=== PATIENT | female | born 1940 | race Hispanic/Latino ===

== ENCOUNTER 2016-12-26 14:30 | Emergency (ER) | payer BC ==
[2016-12-26 14:31] VITALS: BMI 23.8
[2016-12-26 14:37] VITALS: TEMP 98.3
[2016-12-26] MEDS ORDERED: Sodium Chloride 0.9% 500 ML IV STA (14:59)
[2016-12-26 15:40] LABS: ALB/GLOB RATIO 1.7 (1.1-1.8); ALKALINE PHOSPHATASE 61 U/L (38-126); ALT/SGPT 37 U/L (7-56); AST/SGOT 28 U/L (14-36); BILIRUBIN,TOTAL 0.7 mg/dL (0.2-1.3); BLOOD UREA NITROGEN 14 mg/dL (7-21); CALCIUM 9.4 mg/dL (8.4-10.5); CARBON DIOXIDE 26 mmol/L (21-33); GFR AFRICAN-AMERICAN > 60; GLUCOSE,RANDOM 95 mg/dL (70-110); POTASSIUM 4.1 mmol/L (3.6-5.0); SODIUM 138 mmol/L (132-148)
[2016-12-26 15:41] LABS: CHLORIDE 104 mmol/L (98-107)
--- NOTE | 2016-12-26 15:42 | ED PDOC ---
Arrival/HPI - General Historian: Patient - History of Present Illness Time/Duration: 1 week Symptom Course: Intermittent Quality: Stabbing Severity Level: 10 Activities at Onset: Rest <Marilou Bangura - Last Filed: 12/26/16 17:15> <Barbara Childress - Last Filed: 12/26/16 19:11> - General Chief Complaint: Back Pain Time Seen by Provider: 12/26/16 14:45 - History of Present Illness Narrative History of Present Illness (Text): 12/26/16 15:39 76yr old female presents today today with a 1 week history of intermitted left sided upper back pain. pt states for the past week she has been having intermittent sharp stabbing pain to the left upper back. pt denies any recent trauma or injury. pt states pain first started 1 week ago while she was sitting in a new chair at work. pt denies cp or sob. no abdominal pain. no urinary symptoms. denies numbness, weakness. pt states pain has been intermittent and last night the pain was 10/10. pt states pain is always located at the same point in the left side of the upper back and is non radiating. pt states she was sent to ER by her PMD for further evaluation. pt denies any pain at present time. (Marilou Bangura) Past Medical History - Provider Review Nursing Documentation Reviewed: Yes - Travel History Have you recently traveled outside [place] w/in the past 3 mons?: No - Infectious Disease Hx of Infectious Diseases: None - Tetanus Immunization Tetanus Immunization: Unknown - Past Medical History Past Medical History: No Previous - Psychiatric Hx Depression: No Hx Emotional Abuse: No Hx Physical Abuse: No Hx Substance Use: No - Past Surgical History Past Surgical History: No Previous - Anesthesia Hx Anesthesia: No - Suicidal Assessment Feels Threatened In Home Enviroment: No <Marilou Bangura - Last Filed: 12/26/16 17:15> Family/Social History - Physician Review Nursing Documentation Reviewed: Yes Family/Social History: Unknown Family HX Smoking Status: Former Smoker Hx Alcohol Use: No Hx Substance Use: No <Marilou Bangura - Last Filed: 12/26/16 17:15> Allergies/Home Meds <Marilou Bangura - Last Filed: 12/26/16 17:15> <Barbara Childress - Last Filed: 12/26/16 19:11> Allergies/Adverse Reactions: Allergies No Known Allergies Allergy (Verified 12/26/16 14:33) Review of Systems - Review of Systems Constitutional: absent: Fatigue, Fevers Respiratory: absent: SOB, Cough Cardiovascular: absent: Chest Pain, Palpitations Gastrointestinal: absent: Abdominal Pain, Constipation, Diarrhea, Nausea, Vomiting Genitourinary Female: absent: Dysuria, Frequency, Hematuria Musculoskeletal: Back Pain. absent: Arthralgias, Neck Pain Skin: absent: Rash, Pruritis Neurological: absent: Headache, Dizziness Psychiatric: absent: Anxiety, Depression, Suicidal Ideation <Marilou Bangura T - Last Filed: 12/26/16 17:15> Physical Exam Vital Signs Reviewed: Yes Temperature: Afebrile Blood Pressure: Hypertensive Pulse: Regular Respiratory Rate: Normal Appearance: Positive for: Well-Appearing, Non-Toxic, Comfortable Pain Distress: None Mental Status: Positive for: Alert and Oriented X 3 - Systems Exam Head: Present: Atraumatic Mouth: Present: Moist Mucous Membranes Neck: Present: Normal Range of Motion Respiratory/Chest: Present: Clear to Auscultation, Good Air Exchange. No: Respiratory Distress, Accessory Muscle Use Cardiovascular: Present: Regular Rate and Rhythm, Normal S1, S2. No: Murmurs Abdomen: No: Tenderness, Rebound, Guarding Back: Present: Normal Inspection, Paraspinal Tenderness (+ point tenderness to left side of thoracic spine; no midline bony tenderness. ). No: Midline Tenderness Upper Extremity: Present: Normal ROM Lower Extremity: Present: Normal ROM Neurological: Present: GCS=15, Speech Normal, Motor Func Grossly Intact, Gait Normal Skin: Present: Warm, Dry, Normal Color. No: Rashes Psychiatric: Present: Alert, Oriented x 3 <Marilou Bangura T - Last Filed: 12/26/16 17:15> Medical Decision Making <Marilou Bangura - Last Filed: 12/26/16 17:15> <Barbara Childress - Last Filed: 12/26/16 19:11> ED Course and Treatment: 12/26/16 15:42 76yr old female sent in by dr. self for evaluation of left sided mid-upper back pain. pt seen and evaluated by dr. childress. cbc: wnl cmp wnl UA: small blood cxrFINDINGS: LUNGS: Clear. PLEURA: No pneumothorax or pleural fluid seen. CARDIOVASCULAR: Normal. OSSEOUS STRUCTURES: No significant abnormalities. VISUALIZED UPPER ABDOMEN: Normal. OTHER FINDINGS: None. IMPRESSION: No active disease. ekg; NSR at 63 b/m normal axis, normal intervals, no st elevations. ct dissection protocol; FINDINGS: CT ANGIOGRAPHY OF THE CHEST WITH & WITHOUT CONTRAST: AORTA (CHEST AND ABDOMEN): The thoracic and abdominal aorta are unremarkable, without aneurysm, dissection or rupture. No intramural thrombus identified in the thoracic aorta on the non-contrast ct of the chest. The celiac axis, superior mesenteric artery, inferior mesenteric artery and the renal arteries are widely patent. The pelvic arteries are unremarkable. LUNGS: Clear. No nodule, mass or consolidation. MEDIASTINUM: Unremarkable. Normal caliber aorta and pulmonary arterial trunk. No aortic dissection. Normal size heart. LYMPH NODES: Unremarkable. PLEURA: Unremarkable. No pneumothorax. No pleural fluid. BONES: Unremarkable. OTHER FINDINGS: None. CT ANGIOGRAPHY OF THE ABDOMEN AND PELVIS WITH CONTRAST: LIVER: Unremarkable. No gross lesion or ductal dilatation. GALLBLADDER AND BILE DUCTS: Unremarkable. PANCREAS: Unremarkable. No gross lesion or ductal dilatation. SPLEEN: Unremarkable. ADRENALS: Unremarkable. No mass. KIDNEYS AND URETERS: Unremarkable. No hydronephrosis. No solid mass. VASCULATURE: Unremarkable. No aortic aneurysm. STOMACH AND BOWEL: Unremarkable. No obstruction. No gross mural thickening. APPENDIX: Normal appendix. PERITONEUM: Unremarkable. No free fluid. No free air. LYMPH NODES: Unremarkable. No enlarged lymph nodes. BLADDER: Unremarkable. REPRODUCTIVE: Unremarkable. BONES: No acute fracture. OTHER FINDINGS: None. IMPRESSION: Negative study 12/26/16 16:55 pt non toxic well appearing; no distress. discussed all results in depth with patient; pt remains without pain. case discussed with dr. self. will d/c home with tramadol and baclofen. advised f/u in office. impression; back pain Baclofen; every 8 hours as needed for muscle spams; may cause drowsiness tramadol; 1 tablet every 6 hours as needed for moderate to severe pain; may cause drowsiness Increase fluids. follow up with the primary care physician within the next 2 days. return immediately if symptoms worsen,persist or if new symptoms develop. (Marilou Bangura) 12/26/16 19:07 Patient seen and examined with PA with c/o upper back pain; ekg is unremarkable as are vitals and labs, including Patient got a CTA dissection study which was negative. Pain is unlikely cardiac; discussed with Dr. Self, who agrees with discharge on tramadol and baclofen and f/u with him. (Barbara Childress) - Lab Interpretations Lab Results: 12/26/16 15:10 12/26/16 15:10 Lab Results 12/26/16 15:10: Urine Color Yellow, Urine Appearance Clear, Urine pH 6.5, Ur Specific [place] 1.015, Urine Protein Negative, Urine Glucose (UA) Negative, Urine Ketones Negative, Urine Blood Small H, Urine Nitrate Negative, Urine Bilirubin Negative, Urine Urobilinogen 0.2, Ur Leukocyte Esterase Negative, Urine RBC 1 - 3, Urine WBC Negative 12/26/16 15:10: WBC 7.1 D, RBC 4.77, Hgb 15.2, Hct 43.6, MCV 91.4, MCH 31.9, MCHC 34.9, RDW 12.6, Plt Count 161, MPV 10.5, Gran % 74.9 H, Lymph % (Auto) 17.8 L, [place] % (Auto) 6.5 H, Eos % (Auto) 0.7 L, Baso % (Auto) 0.1, Gran # 5.34 , Lymph # 1.3, [place] # 0.5, Eos # 0.1, Baso # 0.01 12/26/16 15:10: Sodium 138, Potassium 4.1, Chloride 104, Carbon Dioxide 26, Anion Gap 12, BUN 14, Creatinine 0.6, Est GFR ( Amer) > 60, Est GFR (Non- Af Amer) > 60, Random Glucose 95, Calcium 9.4, Total Bilirubin 0.7, AST 28, ALT 37, Alkaline Phosphatase 61, Lactate Dehydrogenase 489, Total Creatine Kinase 86 , Troponin I < 0.01, Total Protein 7.0, Albumin 4.4, Globulin 2.6, Albumin/ Globulin Ratio 1.7 - RAD Interpretation Radiology Orders: 12/26/16 14:58 CHEST ONE VIEW [RAD] Stat 12/26/16 14:59 ANGIOGRAPHY DISECTION PROTOCOL [CT] Stat - Medication Orders Current Medication Orders: Discontinued Medications Sodium Chloride (Sodium Chloride 0.9%) 500 mls @ 999 mls/hr IV .Q31M STA Stop: 12/26/16 15:29 Last Admin: 12/26/16 15:21 Dose: 999 mls/hr Iohexol (Omnipaque 350 150 Ml) Confirm Administered Dose 150 ml .ROUTE .STK-MED ONE Stop: 12/26/16 16:10 - PA / MEAT HANGER / Resident Statement JERRY has reviewed & agrees with the documentation as recorded. JERRY has examined the patient and agrees with the treatment plan. <Barbara Childress - Last Filed: 12/26/16 19:11> Disposition/Present on Arrival - Present on Arrival Any Indicators Present on Arrival: No History of DVT/PE: No History of Uncontrolled Diabetes: No Urinary Catheter: No History of Decub. Ulcer: No History Surgical Site Infection Following: None - Disposition Have Diagnosis and Disposition been Completed?: Yes Disposition Time: 17:01 Patient Plan: Discharge <Marilou Bangura - Last Filed: 12/26/16 17:15> <Barbara Childress - Last Filed: 12/26/16 19:11> - Disposition Diagnosis: Back pain Disposition: HOME/ ROUTINE Condition: FAIR Additional Instructions: Baclofen; every 8 hours as needed for muscle spams; may cause drowsiness tramadol; 1 tablet every 6 hours as needed for moderate to severe pain; may cause drowsiness Increase fluids. follow up with the primary care physician within the next 2 days. return immediately if symptoms worsen,persist or if new symptoms develop. Prescriptions: Baclofen [Lioresal] 10 mg PO Q8H PRN #10 tab PRN Reason: muscle spasms traMADol [Ultram] 50 mg PO Q6H PRN #8 tab PRN Reason: moderate to severe pain Referrals: Asia Self MD [Primary Care Provider] - Follow up with primary Forms: [employer] (Arabic)
[2016-12-26 15:47] LABS: BASO # 0.01 K/mm3 (0.0-2.0); BASO % 0.1 % (0.0-3.0); EOS # 0.1 (0.0-0.7); EOS % 0.7 % (1.5-5.0); GRAN # 5.34 (1.4-6.5); GRAN % 74.9 % (50.0-68.0); HEMATOCRIT 43.6 % (36.0-48.0); LYMPH # 1.3 (1.2-3.4); LYMPH % 17.8 % (22.0-35.0); MEAN CELL VOLUME 91.4 fl (80.0-105.0); MEAN CORPUSCULAR HEMOGLOBIN 31.9 pg (25.0-35.0); MEAN CORPUSCULAR HGB CONC 34.9 g/dl (31.0-37.0); MEAN PLATELET VOLUME 10.5 fl (7.0-11.0); MONO # 0.5 (0.1-0.6); MONO % 6.5 % (1.0-6.0); RED CELL DISTRIBUTION WIDTH 12.6 % (11.5-14.5); WHITE BLOOD COUNT 7.1 10^3/ul (4.5-11.0)
[2016-12-26 15:52] LABS: TROPONIN I < 0.01 ng/mL
[2016-12-26 16:12] VITALS: BP 158/79; PULSE 66; RESP 18; O2SAT 96
[2016-12-26 16:12] LABS: PH,URINE 6.5 (4.7-8.0); URINE BILIRUBIN NEGATIVE (NEGATIVE); URINE BLOOD SMALL (NEGATIVE); URINE GLUCOSE (UA) NEGATIVE (NEGATIVE); URINE KETONE NEGATIVE (NEGATIVE); URINE LEUKOCYTE ESTERASE NEGATIVE Leu/uL (NEGATIVE); URINE PROTEIN NEGATIVE mg/dL (<30 mg/dL); URINE UROBILINOGEN 0.2 E.U./dL (<1 E.U./dL)
[2016-12-26 16:13] LABS: URINE APPEARANCE CLEAR (CLEAR); URINE COLOR YELLOW (YELLOW)
[2016-12-26 16:20] LABS: URINE WBC NEGATIVE /hpf (0-6)
--- NOTE | 2016-12-26 16:44 | RAD ---
PROCEDURE: CHEST RADIOGRAPH, 1 VIEW HISTORY: back pain COMPARISON: None available. FINDINGS: LUNGS: Clear. PLEURA: No pneumothorax or pleural fluid seen. CARDIOVASCULAR: Normal. OSSEOUS STRUCTURES: No significant abnormalities. VISUALIZED UPPER ABDOMEN: Normal. OTHER FINDINGS: None. IMPRESSION: No active disease.
--- NOTE | 2016-12-26 16:51 | CT ---
PROCEDURE: CT Angiography Chest, Abdomen and Pelvis with and without intravenous contrast HISTORY: abd pain COMPARISON: None. TECHNIQUE: Contiguous axial images of the chest, abdomen and pelvis were obtained in the phase of aortic enhancement. A noncontrast enhanced CT of the chest was also obtained to evaluate for possible intramural thrombus. Coronal and sagittal reformats were generated. IV dose administered: 150 cc of Omni 350 Radiation dose: Total exam DLP = 1224 mGy-cm. This CT exam was performed using one or more of the following dose reduction techniques: Automated exposure control, adjustment of the mA and/or kV according to patient size, and/or use of iterative reconstruction technique. FINDINGS: CT ANGIOGRAPHY OF THE CHEST WITH & WITHOUT CONTRAST: AORTA (CHEST AND ABDOMEN): The thoracic and abdominal aorta are unremarkable, without aneurysm, dissection or rupture. No intramural thrombus identified in the thoracic aorta on the non-contrast ct of the chest. The celiac axis, superior mesenteric artery, inferior mesenteric artery and the renal arteries are widely patent. The pelvic arteries are unremarkable. LUNGS: Clear. No nodule, mass or consolidation. MEDIASTINUM: Unremarkable. Normal caliber aorta and pulmonary arterial trunk. No aortic dissection. Normal size heart. LYMPH NODES: Unremarkable. PLEURA: Unremarkable. No pneumothorax. No pleural fluid. BONES: Unremarkable. OTHER FINDINGS: None. CT ANGIOGRAPHY OF THE ABDOMEN AND PELVIS WITH CONTRAST: LIVER: Unremarkable. No gross lesion or ductal dilatation. GALLBLADDER AND BILE DUCTS: Unremarkable. PANCREAS: Unremarkable. No gross lesion or ductal dilatation. SPLEEN: Unremarkable. ADRENALS: Unremarkable. No mass. KIDNEYS AND URETERS: Unremarkable. No hydronephrosis. No solid mass. VASCULATURE: Unremarkable. No aortic aneurysm. STOMACH AND BOWEL: Unremarkable. No obstruction. No gross mural thickening. APPENDIX: Normal appendix. PERITONEUM: Unremarkable. No free fluid. No free air. LYMPH NODES: Unremarkable. No enlarged lymph nodes. BLADDER: Unremarkable. REPRODUCTIVE: Unremarkable. BONES: No acute fracture. OTHER FINDINGS: None. IMPRESSION: Negative study
--- NOTE | 2016-12-27 10:12 | CARD ---
APPROVED REPORT EKG Measurement Heart [id number] <Conclusion> Normal sinus rhythm Low voltage QRS Borderline ECG
== END 2016-12-26 17:18 | disposition home or self-care (01) ==
LOC: ED 14:30
DX: M54.9 Dorsalgia, unspecified (principal)
CPT/HCPCS: 71010; 71275; 74175; 80053; 81001; 82550; 83615; 84484; 85025; 93005; 99284; J7040; Q9967